=== PATIENT | female | born 1995 | race American Indian/Alaskan Native ===

== ENCOUNTER 2017-07-07 12:42 | Outpatient (CLI) | payer MEDICAID ==
[2017-07-07 13:16] VITALS: BP 102/69
== END 2017-07-07 16:50 | disposition home or self-care (01) ==
LOC: TRG 12:42
PROVIDERS: ATTEND Obstetrics & Gynecology
DX: O47.1 False labor at or after 37 completed weeks of gestation (principal); Z3A.39 39 weeks gestation of pregnancy

== ENCOUNTER 2017-07-09 10:23 | Inpatient (IN) | payer MEDICAID ==
[2017-07-09] MEDS ORDERED: SUBLIMAZE IV PRN (11:14)
[2017-07-09] MEDS ORDERED: XYLOCAINE 2% INFILTRATI ONE (11:14)
[2017-07-09] MEDS ORDERED: ePHEDrine SULFATE IV PRN ×2 (11:14→13:55)
[2017-07-09] MEDS ORDERED: BRETHINE SUB-Q PRN (11:14)
[2017-07-09] MEDS ORDERED: STADOL IV PRN (11:14)
[2017-07-09] MEDS ORDERED: BRETHINE IVP PRN (11:30)
[2017-07-09 11:39] LABS: Hematocrit 38.6 % (30.3-42.9); Hemoglobin 12.5 gm/dl (10.1-14.3); Mean Corpuscular HGB Conc 32 % (30-34); Mean Corpuscular Hemoglobin 28 pg (28-32); Mean Corpuscular Volume 86 fl (79-97); Platelet Count 336 K/mm3 (140-440); Red Blood Count 4.48 M/mm3 (3.65-5.03); Red Cell Distribution Width 15.3 % (13.2-15.2); White Blood Count 10.7 K/mm3 (4.5-11.0)
[2017-07-09] MEDS: LACTATED RINGERS 1,000 ML IV SCH ×2 (11:58→13:47)
[2017-07-09] MEDS ORDERED: PITOCin/NS 20 UNIT/1000ML DRIP 20 UNITS/1,000 ML BAG IV SCH (12:00)
[2017-07-09] MEDS ORDERED: PITOCin/NS 30 UNIT/500ML 30 UNITS/500 ML BAG IV SCH ×2 (12:00)
--- NOTE | 2017-07-09 13:05 | History and Physical Report ---
History of Present Illness Date of examination: 07/09/17 Date of admission: 07/09/17 10:23 History of present illness: 26 yo first trimester U/S EDC 07/10/17 @39.6 weeks gestation presented to office with SROM-clear fluid @ 0900 and every 4 minute contractions. SVE in office /2/vtx. First trimester entry into care at 6 weeks gestation. course complicated by anemia only, with iron BID. Past History Past Medical History: other (anemia) Past Surgical History: no surgical history Family/Genetic History: none Social history: no significant social history, single - Obstetrical History Expected Date of Delivery: 07/10/17 Actual Gestation: 39 Week(s) 6 Day(s) : 2 Para: 1 Number of Living Children: 1 Medications and Allergies Allergies Allergy/AdvReac Type Severity Reaction Status Date / Time No Known Allergies Allergy Unverified 06/23/15 01:33 Home Medications Medication Instructions Recorded Confirmed Last Taken Type No Known Home Medications [No 07/09/17 07/09/17 Unknown History Reported Home Medications] Active Meds: Active Medications Butorphanol Tartrate (Stadol) 2 mg IV Q2H PRN PRN Reason: Pain , Severe (7-10) Ephedrine Sulfate (Ephedrine Sulfate) 10 mg IV Q2M PRN PRN Reason: Hypotension Stop: 07/09/17 23:59 Fentanyl (Sublimaze) 100 mcg IV Q2H PRN PRN Reason: Labor Pain Last Admin: 07/09/17 12:31 Dose: 100 mcg Lactated Ringer's (Lactated Ringers) 1,000 mls @ 125 mls/hr IV DIRECT INDIA Last Admin: 07/09/17 11:58 Dose: 125 mls/hr Oxytocin/Sodium Chloride (Pitocin/Ns 20 Unit/1000ml Drip) 20 units in 1,000 mls @ 125 mls/hr IV DIRECT INDIA Oxytocin/Sodium Chloride (Pitocin/Ns 30 Unit/500ml) 30 units in 500 mls @ 1 mls /hr IV TITR INDIA; 1 MILLIUNITS/MIN PRN Reason: Protocol Oxytocin/Sodium Chloride (Pitocin/Ns 30 Unit/500ml) 30 units in 500 mls @ 4 mls /hr IV TITR INDIA PRN Reason: Protocol Last Titration: 07/09/17 12:32 Dose: 12 ml/hr, 12 mls/hr Mineral Oil (Mineral Oil) 30 ml PO QHS PRN PRN Reason: Constipation Review of Systems All systems: negative Genitourinary: deferred, normal appearance, leakage of fluid, contractions, no genital sores - Vital Signs Vital signs: Vital Signs Temp Resp BP 97.6 F 18 107/72 07/09/17 10:54 07/09/17 10:54 07/09/17 10:54 Temp Pulse Resp BP Pulse Ox 97.6 F 18 107/72 07/09/17 10:54 07/09/17 12:31 07/09/17 10:54 - Physical Exam Breasts: Positive: deferred Abdomen: Positive: normal appearance - Obstetrical FHR: category 2 FHR comments: recent medication, minimal variability Results Result Diagrams: 07/09/17 10:30 Abnormal lab results 07/09/17 Range/Units 10:30 RDW 15.3 H (13.2-15.2) % All other labs normal. Assessment and Plan A: IUP at term SROM-clear fluid Early Labor P: Pitocin augmentation Anticipate
--- NOTE | 2017-07-09 13:54 | Anesthesia Consultation ---
Anesthesia Consult and Med Hx Date of service: 07/09/17 - Airway Anesthetic Teeth Evaluation: Good ROM Head & Neck: Adequate Mental/Hyoid Distance: Adequate Mallampati Class: Class II Intubation Access Assessment: Probably Good - Pre-Operative Health Status ASA Pre-Surgery Classification: ASA2 Proposed Anesthetic Plan: Epidural, Spinal - Pulmonary Hx Asthma: No COPD: No Hx Pneumonia: No - Cardiovascular System Hx Hypertension: No - Central Nervous System Hx Seizures: No Hx Psychiatric Problems: No - Endocrine Hx Renal Disease: No Hx End Stage Renal Disease: No Hx Hypothyroidism: No Hx Hyperthyroidism: No - Hematic Hx Anemia: No Hx Sickle Cell Disease: No - Other Systems Hx Alcohol Use: Yes
[2017-07-09] MEDS ORDERED: NARCAN 2 MG/2 ML IV PRN (13:55)
[2017-07-09] MEDS ORDERED: fentaNYL-BUPIV 2 MCG/ML-0.125% 200 MCG/100 ML BAG EPIDURAL SCH (14:00)
--- NOTE | 2017-07-09 14:04 | Procedure Note ---
OB Delivery Note - Delivery Date of Delivery: 07/09/17 (6-13 oz Female @ 1409) Surgeon: YULI GRAFF Estimated blood loss: <100cc - Vaginal Delivery presentation: vertex Delivery position: OA Intrapartum events: none Delivery augmentation: pitocin Delivery monitor: external FHT, external uterine Route of delivery: Delivery placenta: spontaneous Delivery cord: 3 umbilical vessels Episiotomy: none Delivery laceration: none Anesthesia: epidural - Infant A at 1 minute: 9 at 5 minutes: 9 Gender: Female (Progressed rapidly from 4cm to C/C. Pushed for viable female. Bulb suctioned and placed skin to skin. Cord blood collected. Spont. placenta. Pitocin infusing. Bleeding scant, FF 3 below U, ML.)
[2017-07-09] MEDS ORDERED: PHENERGAN PO PRN (14:32)
[2017-07-09] MEDS ORDERED: DULCOLAX PR PRN (14:32)
[2017-07-09] MEDS ORDERED: MILK OF MAGNESIA PO PRN (14:32)
[2017-07-09] MEDS ORDERED: BENADRYL PO PRN (14:32)
[2017-07-09] MEDS ORDERED: LANSINOH TP PRN (14:32)
[2017-07-09] MEDS ORDERED: TYLENOL PO PRN (14:32)
[2017-07-09] MEDS ORDERED: PHENERGAN PR PRN (14:32)
[2017-07-09] MEDS ORDERED: TUCKS PAD TP PRN (14:32)
[2017-07-09] MEDS ORDERED: SODIUM CHLORIDE FLUSH SYRINGE 10 ML IV NR (15:00)
[2017-07-09] MEDS: MOTRIN PO SCH ×2 (17:28→23:27)
[2017-07-09] MEDS: NORCO 5/325 PO PRN ×2 (17:29→20:47)
[2017-07-09] MEDS ORDERED: MINERAL OIL PO PRN (22:00)
[2017-07-10 01:39] LABS: Hematocrit 30.9 % (30.3-42.9); Hemoglobin 10.4 gm/dl (10.1-14.3)
[2017-07-10] MEDS: MOTRIN PO SCH ×4 (05:18→23:26)
[2017-07-10] MEDS ORDERED: M-M-R II VACCINE SUB-Q ONE (06:00)
[2017-07-10] MEDS ORDERED: BOOSTRIX IM ONE (06:00)
--- NOTE | 2017-07-10 13:24 | Progress Note ---
Assessment and Plan O: VSS AF PP H/H: 10.4/30.9 A: Stable PP Day 1 S/P viable female P:D/C home in am Subjective - Subjective Date of service: 07/10/17 Interval history: 26 yo first trimester U/S EDC 07/10/17 @39.6 weeks gestation presented to office with SROM-clear fluid @ 0900 and every 4 minute contractions. SVE in office /-2/vtx. First trimester entry into care at 6 weeks gestation. course complicated by anemia only, with iron BID. Patient reports: appetite normal, voiding normally, pain well controlled, ambulating normally [place]: doing well, bottle feeding Objective - Vital Signs Latest vital signs: Vital Signs Temp Pulse Resp BP BP Pulse Ox 07/10/17 08:47 98.2 F 71 20 100/60 07/10/17 00:00 98.0 F 76 18 102/63 07/09/17 20:05 97.8 F 74 18 99/62 07/09/17 16:30 98.5 F 69 18 118/71 100 07/09/17 15:49 71 111/71 07/09/17 15:34 62 118/71 07/09/17 15:20 80 135/72 07/09/17 15:04 65 123/76 07/09/17 14:50 79 124/73 07/09/17 14:42 97.9 F 18 107/59 07/09/17 14:21 86 107/59 07/09/17 14:20 89 07/09/17 14:19 76 110/63 07/09/17 14:04 70 126/77 07/09/17 13:49 75 115/62 07/09/17 13:47 81 116/64 07/09/17 13:44 94 H 114/65 93 07/09/17 13:42 73 96 07/09/17 13:39 67 111/68 07/09/17 13:37 85 110/76 98 07/09/17 13:32 98 H 98 07/09/17 13:27 87 100 Intake and Output 07/09/17 07/10/17 07/10/17 22:59 06:59 14:59 Intake Total 370 120 120 Output Total 1300 Balance -930 120 120 Intake: IV 250 PITOCin/NS 20 UNIT/1000ML 250 DRIP 20 units In 1,000 ml @ 125 mls/hr IV DIRECT INDIA Rx#:[id number] Oral 120 120 120 Output: Urine 1300 Void 1300 Other: Total, Intake Amount 120 120 120 Total, Output Amount 500 # Voids Void 1 1 - Exam Breasts: Present: normal Abdomen: Present: normal appearance, soft. Absent: distention, tenderness Uterus: Present: normal, firm, fundal height below umbilicus. Absent: bogginess Extremities: Present: normal
--- NOTE | 2017-07-10 13:28 | Discharge Summary ---
Providers - Providers Date of Admission: 07/09/17 10:23 Date of discharge: 07/11/17 Attending physician: PARISH RAY MD Primary care physician: STEFANY CONNOLLY Hospitalization Reason for admission: rupture of membranes, IUP at term Delivery: Episiotomy: none Laceration: none Discharge diagnosis: IUP at term delivered baby: female Condition at discharge: Good Disposition: DC-01 TO HOME OR SELFCARE Plan - Discharge Medications Prescriptions: Ibuprofen [Motrin 600 MG tab] 600 mg PO Q6H PRN #30 tablet PRN Reason: pain - Provider Discharge Summary Activity: routine, no sex for 6 weeks, no heavy lifting 4 weeks, no strenuous exercise Diet: routine Instructions: routine Additional instructions: [] Smoking cessation referral if applicable(refer to patient education folder for contact #) [] Refer to [facility]'s [facility] Booklet Call your doctor immediately for: * Fever > 100.5 * Heavy vaginal bleeding ( >1 pad per hour) * Severe persistent headache * Shortness of breath * Reddened, hot, painful area to leg or breast * Drainage or odor from incision. * Keep incision clean and dry at all times and follow doctor's instructions regarding bathing/showering - Follow up plan Follow up: STEFANY CONNOLLY MD [Primary Care Provider] - YULI GRAFF CNM [Advanced Practice Nurse] - (RTO 4 weeks )
--- NOTE | 2017-07-10 13:56 | Progress Note ---
Subjective Date of service: 07/10/17 Interval history: Epidural was previously removed. No anesthetic related complaints. Objective - Constitutional Vitals: Vital Signs - 12hr 07/10/17 08:47 Temperature 98.2 F Pulse Rate 71 Respiratory 20 Rate Blood Pressure 100/60 [Left] - Labs CBC & Chem 7: 07/10/17 01:12
[2017-07-10] MEDS: NORCO 5/325 PO PRN (21:45)
[2017-07-11] MEDS: MOTRIN PO SCH ×2 (05:38→12:44)
[2017-07-11 09:48] VITALS: BP 112/69
== END 2017-07-11 14:30 | disposition home or self-care (01) | DRG 775 ==
LOC: LD 10:23 → OB 16:56
PROVIDERS: ADMIT Obstetrics & Gynecology; ATTEND Obstetrics & Gynecology
PROC: 10E0XZZ Delivery of Products of Conception, External Approach (ICD-10-PCS; principal; 2017-07-09)
PROC: 3E0R3BZ Introduction of Anesthetic Agent into Spinal Canal, Percutaneous Approach (ICD-10-PCS; 2017-07-09)
PROC: 00HU33Z Insertion of Infusion Device into Spinal Canal, Percutaneous Approach (ICD-10-PCS; 2017-07-09)
PROC: 3E0234Z Introduction of Serum, Toxoid and Vaccine into Muscle, Percutaneous Approach (ICD-10-PCS; 2017-07-10)
DX: O42.02 Full-term premature rupture of membranes, onset of labor within 24 hours of rupture (principal); Z3A.39 39 weeks gestation of pregnancy; Z37.0 Single live birth; Z23 Encounter for immunization; O99.019 Anemia complicating pregnancy, unspecified trimester; D64.9 Anemia, unspecified
CPT/HCPCS: 36415; 85014; 85018; 85027; 86592; 86850; 86900; 86901; 90471; 90715; J2590; J3010; J7120

== ENCOUNTER 2018-12-24 01:09 | Outpatient (CLI) | payer MEDICAID ==
[2018-12-24] MEDS ORDERED: LACTATED RINGERS 2,000 ML ONE (01:57)
[2018-12-24] MEDS ORDERED: LACTATED RINGERS 500 ML IV SCH (02:00)
[2018-12-24 02:04] LABS: Bilirubin,Urine NEG (Negative); Blood,Urine NEG (Negative); Color,Urine Yellow (Yellow); Mucus,Urine FEW /HPF; Protein,Urine <15 mg/dL mg/dL (Negative); RBC,Urine < 1.0 /HPF (0.0-6.0); Urobilinogen,Urine < 2.0 mg/dL (<2.0); WBC,Urine < 1.0 /HPF (0.0-6.0)
[2018-12-24] MEDS ORDERED: BRETHINE SUB-Q ONE (02:19)
== END 2018-12-24 04:45 | disposition home or self-care (01) ==
LOC: TRG 01:09
PROVIDERS: ATTEND Obstetrics & Gynecology
DX: O47.02 False labor before 37 completed weeks of gestation, second trimester (principal); Z3A.29 29 weeks gestation of pregnancy
CPT/HCPCS: 36415; 81001; 82731; J3105; J7120

== ENCOUNTER 2019-02-08 00:54 | Inpatient (IN) | payer MEDICAID ==
[2019-02-08] MEDS ORDERED: LACTATED RINGERS 1,000 ML IV ONE (01:17)
[2019-02-08] MEDS ORDERED: BRETHINE IVP PRN (01:51)
[2019-02-08] MEDS ORDERED: MINERAL OIL PO PRN (01:51)
[2019-02-08] MEDS ORDERED: SUBLIMAZE IV PRN (01:51)
[2019-02-08] MEDS ORDERED: PFIZERPEN 5 MIL.UNITS in NACL 0.9% 50 ML IV ONE (01:51)
[2019-02-08] MEDS ORDERED: BRETHINE SUB-Q PRN (01:51)
[2019-02-08] MEDS ORDERED: STADOL IV PRN (01:51)
[2019-02-08] MEDS ORDERED: XYLOCAINE 2% INFILTRATI ONE (01:51)
[2019-02-08] MEDS ORDERED: PITOCin/NS 30 UNIT/500ML 30 UNITS/500 ML BAG IV SCH (02:00)
[2019-02-08] MEDS ORDERED: PITOCin/NS 20 UNIT/1000ML DRIP 20 UNITS/1,000 ML BAG IV SCH ×2 (02:00→11:00)
[2019-02-08] MEDS ORDERED: LACTATED RINGERS 1,000 ML IV SCH (02:00)
[2019-02-08 02:04] LABS: Hematocrit 28.7 % (30.3-42.9); Hemoglobin 9.5 gm/dl (10.1-14.3); Mean Corpuscular HGB Conc 33 % (30-34); Mean Corpuscular Volume 82 fl (79-97); Red Blood Count 3.52 M/mm3 (3.65-5.03); Red Cell Distribution Width 14.3 % (13.2-15.2)
[2019-02-08 02:05] LABS: Platelet Count 319 K/mm3 (140-440)
[2019-02-08] MEDS ORDERED: AMPICILLIN/NS 2 GM/100 ML 2 GM/100 ML BAG IV ONE (02:10)
[2019-02-08] MEDS ORDERED: PFIZERPEN 2.5 MIL.UNITS in NACL 0.9% 50 ML IV SCH (06:00)
[2019-02-08] MEDS ORDERED: AMPICILLIN/NS 1 GM/50 ML 1 GM/50 ML BAG IV SCH (06:10)
--- NOTE | 2019-02-08 08:09 | History and Physical Report ---
History of Present Illness Date of examination: 02/08/19 Date of admission: 02/08/19 01:49 Chief complaint: my water broke History of present illness: Pt is a 23 year old -Italian female ALONZO 03/09/19 at 35w6d presents with complaint of leakage of fluid since 1514 on 02/07/19. She reports irregular contractions and denies vaginal bleeding. She has had care at [facility] since 9 wks complicated by IUD insitu, placental lakes, s uboptimal anatomy scan followed by MFM, anemia on iron supplementation. She is GBS unknown. Past History Past Medical History: no pertinent history Past Surgical History: no surgical history Family/Genetic History: heart disease, hypertension Social history: no significant social history - Obstetrical History Expected Date of Delivery: 03/09/19 Actual Gestation: 35 Week(s) 6 Day(s) : 3 Para: 2 Hx # Term Pregnancies: 2 Number of Pregnancies: 0 Spontaneous Abortions: 0 Induced : 0 Number of Living Children: 2 Medications and Allergies Allergies Allergy/AdvReac Type Severity Reaction Status Date / Time No Known Allergies Allergy Unverified 06/23/15 01:33 Home Medications Medication Instructions Recorded Confirmed Last Taken Type Ferrous Sulfate [Feosol 325 MG tab] 325 mg PO BID #60 tablet 02/08/19 Unknown Rx HYDROcodone/APAP 5-325 [[place] 1 each PO Q6HR PRN #20 tablet 02/08/19 Unknown Rx 5/325] Ibuprofen [Motrin] 800 mg PO Q8HR PRN #30 tablet 02/08/19 Unknown Rx Pnv 29-1 Tablet 1 tab PO DAILY 02/08/19 02/08/19 02/06/19 History Active Meds: Active Medications Butorphanol Tartrate (Stadol) 2 mg IV Q2H PRN PRN Reason: Pain , Severe (7-10) Ephedrine Sulfate (Ephedrine Sulfate) 10 mg IV Q2M PRN PRN Reason: Hypotension Fentanyl (Sublimaze) 100 mcg IV Q2H PRN PRN Reason: Labor Pain Lactated Ringer's (Lactated Ringers) 1,000 mls @ 125 mls/hr IV DIRECT INDIA Last Admin: 02/08/19 02:56 Dose: 125 mls/hr Documented by: Oxytocin/Sodium Chloride (Pitocin/Ns 20 Unit/1000ml Drip) 20 units in 1,000 mls @ 125 mls/hr IV DIRECT INDIA Oxytocin/Sodium Chloride (Pitocin/Ns 30 Unit/500ml) 30 units in 500 mls @ 1 mls/hr IV TITR INDIA; Protocol Last Titration: 02/08/19 04:05 Dose: 4 ml/hr, 4 mls/hr Documented by: Ampicillin Sodium (Ampicillin/Ns 1 Gm/50 Ml) 1 gm in 50 mls @ 100 mls/hr IV Q4HR INDIA; Protocol Last Admin: 02/08/19 06:26 Dose: 100 mls/hr Documented by: Mineral Oil (Mineral Oil) 30 ml PO QHS PRN PRN Reason: Constipation Terbutaline Sulfate (Brethine) 0.25 mg SUB-Q ONCE PRN PRN Reason: Hyperstimulation/Hypertonicity Terbutaline Sulfate (Brethine) 0.25 mg IVP ONCE PRN PRN Reason: Hyperstimulation/Hypertonicity Review of Systems All systems: negative - Vital Signs Vital signs: Vital Signs Pulse BP 99 H 102/67 02/08/19 01:07 02/08/19 01:07 Temp Pulse Resp BP Pulse Ox 98.3 F 70 16 107/60 98 02/08/19 02:11 02/08/19 07:13 02/08/19 02:11 02/08/19 07:13 02/08/19 06:34 - Physical Exam Breasts: Positive: deferred Cardiovascular: Regular rate Lungs: Positive: Clear to auscultation Abdomen: Positive: soft (gravid ) Uterus: Positive: enlarged (gravid ) Extremities: Positive: normal - Obstetrical FHR: auscultation normal Uterine Contraction Monitor Mode: External Cervical Dilatation: 10 Cervical Effacement Percentage: 100 station: +2 Results Result Diagrams: 02/08/19 01:41 Abnormal lab results 02/08/19 Range/Units 01:41 RBC 3.52 L (3.65-5.03) M/mm3 Hgb 9.5 L (10.1-14.3) gm/dl Hct 28.7 L (30.3-42.9) % MCH 27 L (28-32) pg All other labs normal. Assessment and Plan A: IUP at 35w6d Second Stage labor PPROM GBS unknown Anemia P: Admit to labor and delivery Pitocin augmentation GBS prophylaxis Anticipate vaginal delivery
--- NOTE | 2019-02-08 08:10 | Procedure Note ---
OB Delivery Note - Delivery Date of Delivery: 02/08/19 Surgeon: STEFANY CONNOLLY Estimated blood loss: 300cc - Vaginal Delivery presentation: vertex Delivery position: OA Intrapartum events: labor-<37 weeks, PROM->1hr before delivery Delivery induction: oxytocin Delivery augmentation: pitocin Delivery monitor: external FHT, external uterine Route of delivery: Delivery placenta: spontaneous Delivery cord: nuchal cord Episiotomy: none Delivery laceration: none Anesthesia: none - A at 1 minute: 8 at 5 minutes: 9 Infant Gender: Female (2287g (5lb 1 oz) @ 0747 am)
[2019-02-08] MEDS ORDERED: IBUPROFEN PO SCH (10:16)
[2019-02-08] MEDS ORDERED: LANSINOH TP PRN ×2 (10:30→11:00)
[2019-02-08] MEDS ORDERED: BENADRYL PO PRN (10:30)
[2019-02-08] MEDS ORDERED: TYLENOL PO PRN (10:30)
[2019-02-08] MEDS ORDERED: PHENERGAN PO PRN (10:30)
[2019-02-08] MEDS ORDERED: ZOFRAN IV PRN (10:30)
[2019-02-08] MEDS ORDERED: NORCO 5/325 PO PRN (10:30)
[2019-02-08] MEDS ORDERED: TUCKS PAD TP PRN (10:30)
[2019-02-08] MEDS ORDERED: SODIUM CHLORIDE FLUSH SYRINGE 10 ML IV PRN (10:30)
[2019-02-08] MEDS ORDERED: DULCOLAX PR PRN (11:00)
[2019-02-08] MEDS ORDERED: PHENERGAN PR PRN (11:00)
[2019-02-08] MEDS: IBUPROFEN PO SCH ×2 (18:42→23:28)
[2019-02-08 20:20] LABS: Hematocrit 26.7 % (30.3-42.9); Hemoglobin 8.6 gm/dl (10.1-14.3)
[2019-02-08] MEDS ORDERED: MILK OF MAGNESIA PO PRN (22:00)
[2019-02-08] MEDS: FEOSOL PO SCH (23:24)
[2019-02-09] MEDS: IBUPROFEN PO SCH ×3 (05:46→23:02)
[2019-02-09] MEDS ORDERED: BOOSTRIX IM ONE (06:00)
--- NOTE | 2019-02-09 07:45 | Progress Note ---
Assessment and Plan A: PPD#1 s/p at 35 wks secondary to PPROM, Anemia, Increasing lochia P: PO Methergine series. Routine care. Anticipate discharge tomorrow. Subjective - Subjective Date of service: 02/09/19 Principal diagnosis: s/p at 35 wks after PPROM Interval history: Pt reports bleeding somewhat heavier overnight but otherwise feels well. Patient reports: appetite normal, voiding normally, pain well controlled, ambulating normally : doing well Objective - Vital Signs Latest vital signs: Vital Signs Temp Pulse Resp BP BP BP Pulse Ox 02/09/19 00:18 98.4 F 20 108/59 02/09/19 00:17 98.4 F 70 20 108/59 100 02/08/19 20:56 98.7 F 18 103/66 02/08/19 20:55 98.7 F 76 18 103/66 100 02/08/19 17:15 98.5 F 89 20 107/64 99 02/08/19 12:48 98.5 F 91 H 20 107/55 99 02/08/19 09:55 98.7 F 67 20 88/43 02/08/19 09:10 68 113/65 02/08/19 08:55 67 111/64 02/08/19 08:25 73 101/55 02/08/19 08:06 20 Intake and Output 02/08/19 02/09/19 02/09/19 22:59 06:59 14:59 Intake Total 240 480 Output Total 600 Balance 240 -120 Intake: Intake, Free Water 240 480 Output: Urine 600 Void 600 Other: Total, Output Amount 600 # Voids Void 3 2 - Exam Breasts: Present: deferred Cardiovascular: Present: Regular rate Lungs: Present: Clear to auscultation Abdomen: Present: soft Uterus: Present: fundal height at umbilicus Extremities: Present: normal - Labs Labs: Abnormal lab results 02/08/19 Range/Units 20:00 Hgb 8.6 L (10.1-14.3) gm/dl Hct 26.7 L (30.3-42.9) %
--- NOTE | 2019-02-09 07:45 | Discharge Summary ---
Providers - Providers Date of Admission: 02/08/19 01:49 Date of discharge: 02/10/19 Attending physician: EYAL PORTER Primary care physician: EYAL PORTER Hospitalization Reason for admission: rupture of membranes Delivery: Procedure details: Please see delivery note. Episiotomy: none Laceration: none Other procedures: none complications: none Discharge diagnosis: delivery [place] baby: female Hospital course: Pt was admitted with PPROM and ultimately went on to have spontaneous vaginal delivery which she tolerated well. Her course was uncomplicated and she met discharge criteria on PPD#2. She will follow up in the office in 4 wks. Condition at discharge: Stable Disposition: - TO HOME OR SELFCARE - Discharge Diagnoses (1) premature rupture of membranes (PPROM) delivered, current hospitalization Status: Acute (2) delivery Status: Acute (3) Anemia Status: Acute Qualifiers: Anemia type: unspecified type Qualified Code(s): D64.9 - Anemia, unspecified Plan - Discharge Medications Prescriptions: Ferrous Sulfate [Feosol 325 MG tab] 325 mg PO BID #60 tablet Ibuprofen [Motrin] 800 mg PO Q8HR PRN #30 tablet PRN Reason: Pain, Moderate (4-6) HYDROcodone/APAP 5-325 [[place] 5/325] 1 each PO Q6HR PRN #20 tablet PRN Reason: Pain - Provider Discharge Summary Activity: routine, no sex for 6 weeks, no heavy lifting 4 weeks, no strenuous exercise Diet: routine Instructions: routine Additional instructions: [] Smoking cessation referral if applicable(refer to patient education folder for contact #) [] Refer to [facility]'s [facility] Booklet Call your doctor immediately for: * Fever > 100.5 * Heavy vaginal bleeding ( >1 pad per hour) * Severe persistent headache * Shortness of breath * Reddened, hot, painful area to leg or breast * Drainage or odor from incision. * Keep incision clean and dry at all times and follow doctor's instructions regarding bathing/showering - Follow up plan Follow up: STEFANY CONNOLLY MD [Staff Physician] - 03/08/19 (Please call to schedule exam )
[2019-02-09] MEDS: METHERGINE PO SCH ×3 (09:07→23:03)
[2019-02-09] MEDS: FEOSOL PO SCH ×2 (09:07→23:02)
[2019-02-09] MEDS ORDERED: M-M-R II VACCINE SUB-Q ONE (11:00)
[2019-02-10] MEDS: IBUPROFEN PO SCH (05:31)
[2019-02-10] MEDS: FEOSOL PO SCH (09:44)
[2019-02-10 12:36] VITALS: BP 97/50
== END 2019-02-10 12:45 | disposition home or self-care (01) | DRG 775 ==
LOC: TRG 00:54 → LD 01:49 → OB 09:57
PROVIDERS: ADMIT Obstetrics & Gynecology; ATTEND Obstetrics & Gynecology
PROC: 10E0XZZ Delivery of Products of Conception, External Approach (ICD-10-PCS; principal; 2019-02-08)
PROC: 3E033VJ Introduction of Other Hormone into Peripheral Vein, Percutaneous Approach (ICD-10-PCS; 2019-02-08)
PROC: 3E0234Z Introduction of Serum, Toxoid and Vaccine into Muscle, Percutaneous Approach (ICD-10-PCS; 2019-02-09)
DX: O42.913 Preterm premature rupture of membranes, unspecified as to length of time between rupture and onset of labor, third trimester (principal); O60.14X0 Preterm labor third trimester with preterm delivery third trimester, not applicable or unspecified; O99.02 Anemia complicating childbirth; D64.9 Anemia, unspecified; O69.81X0 Labor and delivery complicated by cord around neck, without compression, not applicable or unspecified; Z82.49 Family history of ischemic heart disease and other diseases of the circulatory system; Z3A.35 35 weeks gestation of pregnancy; Z37.0 Single live birth; Z79.899 Other long term (current) drug therapy; Z23 Encounter for immunization
CPT/HCPCS: 36415; 59025; 85014; 85018; 85027; 86592; 86706; 86762; 86850; 86900; 86901; 87806; 88305; 88307; G0378; J0290; J2540; J2590; J3010; J7120

== ENCOUNTER 2021-09-12 09:28 | Day surgery (SDC) | payer MEDICAID ==
--- NOTE | 2021-09-12 07:31 | History and Physical Report ---
History of Present Illness Date of examination: 08/20/21 Chief complaint: Malpositioned IUD, Pelvic Pain History of present illness: Pt is a 25 year old -[place] female -0-0-3 who presents for surgical management of pelvic pain and malpositioned IUD. The IUD appears to be in the posterior myometrium on ultrasound. IUD was placed on 08/05/2017, she then had a with IUD in place and delivered vaginally on 02/08/2019 but has been experiencing pelvic pain subsequently. Past History Past Medical History: no pertinent history Past Surgical History: no surgical history [employer] [employer] History: abnormal PAP smear Family/Genetic History: heart disease, hypertension Social history: no significant social history - Obstetrical History : 3 Para: 3 Hx # Term Pregnancies: 3 Number of Pregnancies: 0 Spontaneous Abortions: 0 Induced : 0 Number of Living Children: 3 Medications and Allergies Allergies Allergy/AdvReac Type Severity Reaction Status Date / Time No Known Allergies Allergy Unverified 08/17/21 18:43 Home Medications Medication Instructions Recorded Confirmed Last Taken Type No Known Home Medications [No 08/17/21 08/17/21 Unknown History Reported Home Medications] Review of Systems All systems: negative - Vital Signs Vital signs: Vital Signs Temp Pulse Resp BP Pulse Ox 98.2 F 70 16 108/66 100 09/10/21 12:45 09/10/21 12:45 09/10/21 12:45 09/10/21 12:45 09/10/21 12:45 Temp Pulse Resp BP Pulse Ox 98.2 F 70 16 108/66 100 09/10/21 12:45 09/10/21 12:45 09/10/21 12:45 09/10/21 12:45 09/10/21 12:45 - Physical Exam Breasts: Positive: deferred Abdomen: Positive: soft Extremities: Positive: normal Results All other labs normal. Assessment and Plan A: Malpositioned IUD Pelvic Pain P: Proceed with hysteoscopic IUD removal, possible laparoscopy, possible lysis of adhesions and other indicated procedures
[~2021-09-12 09:28] MED LIST: LACTATED RINGERS 1,000 ML IV SCH; ceFAZolin/Water 2 GM/20 ML 2 GM/20 ML SYRINGE IV NR
[2021-09-12] MEDS ORDERED: ONDANSETRON 4 MG/2 ML INJ IV PRN (09:41)
--- NOTE | 2021-09-12 09:42 | Anesthesia Day of Surgery ---
Anesthesia Day of Surgery - Day of Surgery Patient Examined: Yes Patient H&P Reviewed: Yes Patient is NPO: Yes
[2021-09-12] MEDS ORDERED: propofoL 200 MG/20 ML VIAL IV ONE (09:43)
--- NOTE | 2021-09-12 09:43 | Anesthesia Consultation ---
Anesthesia Consult and Med Hx Date of service: 09/12/21 - Airway Anesthetic Teeth Evaluation: Good ROM Head & Neck: Adequate Mental/Hyoid Distance: Adequate Mallampati Class: Class I Intubation Access Assessment: Good - Pre-Operative Health Status ASA Pre-Surgery Classification: ASA1 Proposed Anesthetic Plan: General - Pulmonary Hx Asthma: No COPD: No Hx Pneumonia: No - Cardiovascular System Hx Hypertension: No - Central Nervous System Hx Seizures: No Hx Psychiatric Problems: No - Gastrointestinal Hx Gastroesophageal Reflux Disease: No (Occasional heartburn) - Endocrine Hx Renal Disease: No Hx End Stage Renal Disease: No Hx Hypothyroidism: No Hx Hyperthyroidism: No - Hematic Hx Anemia: No Hx Sickle Cell Disease: No - Other Systems Hx Alcohol Use: Yes (Occas) Hx Substance Use: Yes (Marijuana daily) Hx Cancer: No
[2021-09-12] MEDS ORDERED: LIDOCAINE MPF (2%) 20 MG/1 ML VIAL 5 ML ONE (09:44)
[2021-09-12] MEDS ORDERED: ROCURONIUM 50 MG/5 ML INJ IV ONE ×2 (09:44→09:45)
[2021-09-12 09:58] LABS: Hematocrit 41.3 % (30.3-42.9); Mean Corpuscular HGB Conc 32 % (30-34); Mean Corpuscular Volume 88 fl (79-97); Platelet Count 356 K/mm3 (140-440); Red Blood Count 4.68 M/mm3 (3.65-5.03); Red Cell Distribution Width 13.2 % (13.2-15.2)
[2021-09-12] MEDS ORDERED: HYDROmorphone 1 MG/1 ML INJ IV PRN ×2 (10:00)
[2021-09-12] MEDS ORDERED: MIDAZOLAM 2 MG/2 ML INJ IV NR (10:00)
[2021-09-12 10:16] LABS: Blood Urea Nitrogen 14 mg/dL (7-17); Calcium 9.3 mg/dL (8.4-10.2); Hemolysis Index 4
[2021-09-12 10:17] LABS: BUN/Creatinine Ratio 23
[2021-09-12] MEDS ORDERED: ONDANSETRON 4 MG/2 ML INJ ONE (10:38)
[2021-09-12] MEDS ORDERED: dexAMETHasone 20 MG/5 ML VIAL ONE (10:38)
[2021-09-12] MEDS ORDERED: SODIUM CHLORIDE 0.9% IRRIG SOLN 2000 ML IR ONE ×2 (11:39)
[2021-09-12] MEDS ORDERED: KETOROLAC 30 MG/1 ML INJ ONE (11:56)
[2021-09-12] MEDS ORDERED: SILVER NITRATE APPLICATOR 1 EA TP ONE (11:56)
[2021-09-12] MEDS ORDERED: NEOSTIGMINE 10MG/10 ML INJ MDV ONE (11:56)
[2021-09-12] MEDS ORDERED: GLYCOPYRROLATE 0.4 MG/2 ML INJ ONE (11:56)
--- NOTE | 2021-09-12 12:06 | Operative Report ---
Operative Report Operative Report: Date of Procedure: September 12, 2021 Preoperative Diagnosis: #1 Malpositioned IUD #2 Pelvic pain Postoperative Diagnosis: Same Procedure: 1)Hysteroscopy 2) Attempted IUD removal Surgeon: Kinsey Jasso MD Administrative Court Justice: Rajni Mcmillan MD Findings: 1) Anteverted uterus measuring 9 cm 2) IUD deeply embedded into the myometrial tissue unable to be removed after multiple attempts Anesthesia: GETA Estimated blood loss: 25 mL Drains: None Complications: None Disposition: Stable to PACU Indications for procedure: Pt is a 25-year-old 3 para 3 who presents for surgical management of malpositioned IUD and pelvic pain. Operation in detail: After the risks, benefits, alternatives and complications of the procedure were explained to the patient, she gave informed consent for the procedure. She was subsequently taken to the operating room and placed in the dorsal supine position with her IV noted to be running well. SCDs noted to be in place and functioning. General anesthesia was then induced without difficulty. The patient was then placed in dorsal lithotomy position and prepped and draped in normal sterile fashion. A timeout was performed. An exam under anesthesia was performed yielding a mobile anteverted uterus.. A Stein catheter was placed yielding clear urine. An open sided speculum was then placed into the vagina for adequate visualization of the cervix. The anterior lip of the cervix was then grasped with a tenaculum for traction. The cervix was then dilated to accommodate a #21 [place] dilator. At this time, a hysteroscope was introduced to visualize the endometrial cavity which revealed an embedded IUD. Multiple attempts by the surgeon and her hospital clinic assistant were made to remove the IUD but were unsuccessful. At this time it became clear that the patient will require laparotomy with direct excision of the IUD which the patient was not consented for today. All instruments were removed from the uterus atraumatically. At this time, the single-tooth tenaculum was removed from the cervix. Silver nitrate was placed on the tenaculum puncture sites for hemostasis. All instruments were removed from the vagina atraumatically and the procedure was ended. The patient was placed into the dorsal supine position and extubated without difficulty. She was subsequently taken to the PACU in stable condition. She tolerated the procedure well. All counts were correct 2.
--- NOTE | 2021-09-12 12:10 | Short Stay Summary ---
Short Stay Documentation Date of service: 09/12/21 - History H&P: dictated Social history: no significant social history - Allergies and Medications Current Medications: Allergies No Known Allergies Allergy (Unverified 08/17/21 18:43) Home Medications Medication Instructions Recorded Confirmed Last Taken Type No Known Home Medications [No 08/17/21 08/17/21 Unknown History Reported Home Medications] Active Medications Hydromorphone HCl (Hydromorphone 1 Mg/1 Ml Inj) 0.25 mg IV Q10MIN PRN PRN Reason: Pain, Moderate (4-6) Stop: 09/12/21 17:00 Hydromorphone HCl (Hydromorphone 1 Mg/1 Ml Inj) 0.5 mg IV Q10MIN PRN PRN Reason: Pain , Severe (7-10) Stop: 09/12/21 17:00 Lactated Ringer's (Lactated Ringers) 1,000 mls @ 75 mls/hr IV DIRECT INDIA Last Admin: 09/12/21 09:50 Dose: 75 mls/hr Documented by: Cefazolin Sodium (Ancef/Sterile Water 2 Gm/20 Ml) 2 gm in 20 mls @ 80 mls/hr IV PREOP NR; Protocol Stop: 09/12/21 13:00 Midazolam HCl (Midazolam 2 Mg/2 Ml Inj) 2 mg IV PREOP NR Stop: 09/12/21 23:59 Last Admin: 09/12/21 10:19 Dose: 2 mg Documented by: - Physical exam Breasts: deferred - Brief post op/procedure progress note Date of procedure: 09/12/21 Pre-op diagnosis: Malpositioned IUD, Pelvic Pain Post-op diagnosis: same Procedure: Hysteroscopy, Attempted IUD removal Anesthesia: GETA Findings: 1) Small anteverted uterus 2) Embedded IUD unable to be removed hysteroscopically after multiple attempts Surgeon: STEFANY CONNOLLY Defensive Secondary Coach: EYAL PORTER Estimated blood loss: minimal (25 mL) Pathology: none Condition: stable - Disposition Condition at discharge: Stable Disposition: 01 HOME / SELF CARE / HOMELESS - Discharge Diagnoses (1) Malpositioned IUD Status: Acute Qualifiers: Encounter type: sequela Qualified Code(s): T83.32XS - Displacement of intrauterine contraceptive device, sequela (2) Pelvic pain Status: Acute Short Stay Discharge Plan Activity: other (Nothing in vagina, no intercourse, no tampons, no tubs baths x 4 wks ) Weight Bearing Status: Full Weight Bearing Diet: regular Follow up with: PRIMARY CAREMD [Primary Care Provider] - 7 Days STEFANY CONNOLLY MD [Staff Physician] - 7 Days Prescriptions: Ibuprofen [Motrin] 800 mg PO Q8HR PRN #30 tablet PRN Reason: Pain, Moderate (4-6) HYDROcodone/APAP 5-325 [[place] 5/325] 1 each PO Q6HR PRN #10 tablet PRN Reason: Pain
[2021-09-12] MEDS ORDERED: SODIUM CHLORIDE 0.9% IRR 1,500 ML BOTTLE IR ONE (12:27)
[2021-09-12] MEDS ORDERED: HYDROcodone/ACETAMINOPHEN 5-325 MG TAB PO PRN (13:08)
[2021-09-12] MEDS ORDERED: MEPERIDINE 25 MG/1 ML INJ ONE (13:17)
[2021-09-12] MEDS ORDERED: MEPERIDINE 25 MG/1 ML INJ IV PRN (13:19)
[2021-09-12 13:42] VITALS: BP 120/74
--- NOTE | 2021-09-12 15:36 | Post Anesthesia Evaluation ---
- Post Anesthesia Evaluation Patient Participated: Yes Airway Patent: Yes Stable Respiratory Function: Yes Nausea/Vomiting: No Temp > 96.8F: Yes Pain Manageable: Yes Adequeate Hydration: Yes Anesthesia Complications: No Block Receding Appropriately: Not Applicable Patient on Ventilator: No
== END 2021-09-12 14:20 | disposition home or self-care (01) ==
LOC: OR 09:28
PROVIDERS: ATTEND Obstetrics & Gynecology
DX: T83.32XA Displacement of intrauterine contraceptive device, initial encounter (principal); Z20.822 Contact with and (suspected) exposure to COVID-19; R10.2 Pelvic and perineal pain; Z79.899 Other long term (current) drug therapy; Z98.890 Other specified postprocedural states; Y83.8 Other surgical procedures as the cause of abnormal reaction of the patient, or of later complication, without mention of misadventure at the time of the procedure
CPT/HCPCS: 36415; 58562; 80048; 81025; 85027; J0690; J1100; J1170; J1815; J1885; J2175; J2250; J2405; J2704; J2710; J3490; J7120; U0003